=== PATIENT | female | born 1945 | race Asian ===

== ENCOUNTER → 2022-02-12 | Outpatient (CLI) | payer MEDICARE ==
[~2022-02-12] MED LIST: REGADENOSON 0.4 MG/5 ML PF SYRINGE IVP ONE
[2022-02-12 10:04] VITALS: BP 118/79
[2022-02-12 10:10] VITALS: BP 118/89
== END | disposition home or self-care (01) ==
LOC: CARDMN 08:57
PROVIDERS: ATTEND Internal Medicine Cardiovascular Disease
DX: R07.89 Other chest pain (principal)
CPT/HCPCS: 78452; 93017